=== PATIENT | female | born 2000 | race American Indian/Alaskan Native ===

== ENCOUNTER 2021-02-20 18:29 | Emergency (ER) | payer SELFPAY ==
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
[2021-02-20] MEDS ORDERED: Acetaminophen 500 MG Tab PO ONE (19:29)
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
[2021-02-20] MEDS ORDERED: Ketorolac 30 MG/ML SDV IM ONE (20:24)
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
== END 2021-02-20 20:56 | disposition home or self-care (01) ==
LOC: JP.ED 18:29
DX: S02.2XXA Fracture of nasal bones, initial encounter for closed fracture (principal); S00.83XA Contusion of other part of head, initial encounter; J34.2 Deviated nasal septum; Z72.0 Tobacco use; Y04.0XXA Assault by unarmed brawl or fight, initial encounter
CPT/HCPCS: 70450; 70486; 96372; 99284; A9270; J1885

== ENCOUNTER 2021-07-21 14:49 | Emergency (ER) | payer MEDICAID ==
[2021-07-21] MEDS ORDERED: Bacitracin Oint 1 GM U/D Packet TOP ONE (17:21)
[2021-07-21] MEDS ORDERED: Cephalexin 250 MG Cap PO ONE (17:22)
== END 2021-07-21 17:38 | disposition home or self-care (01) ==
LOC: JP.ED 14:49
DX: S61.210A Laceration without foreign body of right index finger without damage to nail, initial encounter (principal); S61.212A Laceration without foreign body of right middle finger without damage to nail, initial encounter; Z72.0 Tobacco use; W26.0XXA Contact with knife, initial encounter; Y92.000 Kitchen of unspecified non-institutional (private) residence as the place of occurrence of the external cause
CPT/HCPCS: 12002; 99283; A9270